=== PATIENT | male | born 1950 | race Caucasian/White ===

== ENCOUNTER → 2016-07-11 | Outpatient (CLI) | payer BC, OTHER ==
[~2016-07-11] MED LIST: /ACET5TA PO; /WARF25TA PO; ACET50TA PO; ALLE180T33 PO; ALLEGRA PO; ASCO25TA PO; ASPI325T PO; ASPI81TA85 PO; CELE-19 PO; CIPR500T89 PO; COLA100C PO; CRESTOR PO; FERR325T PO; FEXO60CA PO; FLAG500T PO; MELOPOW PO; MILKSUS PO; MULTCAP PO; MYLI40DR PO; NEUR600T PO; OXYC1TAB23 PO; PERCOCET PO; PROT1TAB2 PO; ROSU10TA PO; ROXI1TAB2 PO; TRAMADOL PO; TYLE325T5 PO; [UNRECOGNIZED DRUG - OTHER] PO; [UNRECOGNIZED DRUG - OTHER] PO
--- NOTE | 2016-07-11 12:00 | REP ---
Clinical: Arthritis . Comparison: 10/23/2013 . Technique: PA and lateral. Findings: The mediastinum and cardiac silhouette are normal. The lung villalobos are clear and without acute consolidation, effusion, or pneumothorax. The skeletal structures are intact and normal. Impression: 1. No acute cardiopulmonary process. Signed by Nino Martinez MD 07/11/2016 11:52 A
[2016-07-11 12:17] LABS: INR 0.98
[2016-07-11 12:30] LABS: ALBUMIN 3.9 GM/DL (3.2-5.2); ALBUMIN/GLOBULIN RATIO 1.18 (1.00-1.93); ALKALINE PHOSPHATASE 52 U/L (45-117); ALT/SGPT 33 U/L (12-78); ANION GAP 7 MEQ/L (8-16); AST/SGOT 19 U/L (15-37); BILIRUBIN,TOTAL 0.4 MG/DL (0.2-1.0); BLOOD UREA NITROGEN 18 MG/DL (7-18); CALCIUM LEVEL 9.3 MG/DL (8.8-10.2); CARBON DIOXIDE LEVEL 31 MEQ/L (21-32); CHLORIDE LEVEL 103 MEQ/L (98-107); CREATININE FOR GFR 0.96 MG/DL (0.70-1.30); GLOMERULAR FILTRATION RATE > 60.0 (>49); GLUCOSE, FASTING 105 MG/DL (80-110); POTASSIUM SERUM 4.4 MEQ/L (3.5-5.1); SODIUM LEVEL 141 MEQ/L (136-145); TOTAL PROTEIN 7.2 GM/DL (6.4-8.2)
[2016-07-11 12:46] LABS: MEAN CORPUSCULAR HEMOGLOBIN 27.3 pg (27.0-33.0); MEAN CORPUSCULAR HGB CONC 31.6 g/dl (32.0-36.5); MEAN CORPUSCULAR VOLUME 86.6 fl (80.0-96.0); RED CELL DISTRIBUTION WIDTH 12.8 % (11.5-14.5); WHITE BLOOD COUNT 7.2 K/mm3 (4.0-10.0)
--- NOTE | 2016-07-11 22:18 | ECGEPIP ---
Stationary ECG Study [facility] Test Date: 2016-07-11 Pat Name: CEDRIC WATKINS Department: Room: - Gender: [facility] Professor: HELEN : 1950 Requested By: Rubén Liao Order Number: [id number] Reading MD: Isatu Magallanes Measurements Intervals [place] Rate: 70 P: 63 VT: 184 QRS: 1 QRSD: 109 T: 48 QT: 385 QTc: 418 Interpretive Statements SINUS RHYTHM SIMILAR 10/25/13 Electronically Signed On 07-11-2016 22:18:23 EDT by Isatu Magallanes
== END ==
LOC: M ADMPAT 09:22
PROVIDERS: ATTEND Orthopaedic Surgery
DX: Z01.812 Encounter for preprocedural laboratory examination (principal); M17.11 Unilateral primary osteoarthritis, right knee

== ENCOUNTER 2016-07-22 05:41 | Inpatient (IN) | payer BC, OTHER ==
[2016-07-11 10:52] VITALS: BP 138/88
--- NOTE | 2016-07-18 13:20 | HPE ---
DATE OF ADMISSION: 07/22/2016 HISTORY OF PRESENT ILLNESS: This is a pleasant male with continuing symptomatic right knee osteoarthritis. He has consented for right total knee arthroplasty per Dr. Rubén Liao. Medical optimization with Dr. Han on 07/16/2016 which I am awaiting the documentation. X-rays are consistent with advanced osteoarthritis. ALLERGIES: None known to drugs. CURRENT MEDICATIONS: - Crestor 10 mg - Bibiana 60 mg - aspirin 81 mg - Tylenol 325 MEDICAL PROBLEM LIST INCLUDES: Right knee osteoarthritis. Hypercholesteremia. Seasonal allergies. PAST SURGICAL HISTORY: Positive for: Right hip replacement. Cholecystectomy. Hernia repair. PFO closure. FAMILY HISTORY: Positive for cancer, heart disease, hypertension. Denies smoking or ethanol intake. Denies illicit drugs. REVIEW OF SYSTEMS: Denies chest pain, shortness breath, dyspnea on exertion, fever, chills, malaise, upper respiratory or urinary tract symptoms. PHYSICAL EXAMINATION: Height 72 inches, weight 205, temperature 96.8, BP 140/90, pulse 64. This is a pleasant well-developed, well-nourished white male in no acute distress. Alert and times three. Mood and affect are appropriate. He is ambulating without overt antalgia assistance favoring. His bilateral lower extremities were inspected. Benign noninfectious looking. Right knee positive medial joint line tenderness with crepitance through flexion and extension. He is stable about the collateral ligaments. Patellar and quad tendons without palpable defect. PFJ congruent, static and dynamic. Compartment soft, nontender , palpation grossly intact to light touch. Negative calf tenderness. Homans' sign, palpable cords. Right hip range of motion is not limited or irritable. Bowel sounds times four, soft, nontender. Chest rises symmetrically. Lungs clear to auscultation. Neck supple. Negative JVD or bruits. His nasal and sinus culture was positive for moderate staphylococcus. He has begun the Bactroban Hibiclens wash protocol. UA was cloudy. Anion gap 7, hemoglobin 13.6. Mean corpuscular hemoglobin concentration 31.6 and a urine culture was negative. Chest x-ray was unremarkable for acute cardiopulmonary process. EKG sinus rhythm per Dr. Magallanes. IMPRESSION: 1. Symptomatic right knee osteoarthritis. 2. The patient consented for right total knee arthroplasty per Dr. Rubén Liao. 3. Medical optimization per Dr. Jepma performed on 07/16/2016. We are awaiting documentation. 4. On-call to OR. 2 grams IV Kefzol in OR. 5. Sequential compression devices (SCD) and thromboembolic deterrent stockings (TEDS) in OR. MTDD
[~2016-07-22] VITALS: Ht 182.9 cm; Wt 95.0 kg
[2016-07-22] VITALS (8 sets, daily range): BP systolic 122–149; BP diastolic 72–89
[~2016-07-22 05:41] MED LIST changes: -COLA100C PO; +COLA100C3 PO; +CRES10TA32 PO; -ROSU10TA PO
[2016-07-22] MEDS ORDERED: LR 1,000 ML IV SCH ×2 (05:45→09:45)
[2016-07-22] MEDS ORDERED: ceFAZolin 1GM INJ (J0690) As Ordered ONE (06:15)
[2016-07-22] MEDS ORDERED: fentaNYL 100 MCG/2 ML INJECTION (J3010) As Ordered ONE ×3 (06:47→07:48)
[2016-07-22] MEDS ORDERED: MIDAZOLAM INJ 2 MG/2 ML VIAL (J2250) As Ordered ONE ×2 (06:47→07:48)
[2016-07-22] MEDS ORDERED: TRANEXAMIC ACID 100 MG/ML 10ML VIAL As Ordered ONE (07:01)
[2016-07-22] MEDS ORDERED: EPINEPHrine INJ 1 MG/ML 1ML VIAL/AMP As Ordered ONE (07:01)
[2016-07-22] MEDS ORDERED: BUPIVACAINE HCL 0.5% 30 ML VIAL As Ordered ONE (07:01)
[2016-07-22] MEDS ORDERED: BUPIVACAINE HCL 0.25% 30 ML VIAL As Ordered ONE (07:37)
[2016-07-22] MEDS ORDERED: ONDANSETRON 4MG/2ML VIAL (J2405) As Ordered ONE (07:48)
[2016-07-22] MEDS ORDERED: PROPOFOL 200 MG/20 ML VIAL As Ordered ONE (07:48)
[2016-07-22] MEDS ORDERED: LIDOCAINE 2% INJ 100 MG/5 ML SDV (FOR ANES.) As Ordered ONE (07:48)
--- NOTE | 2016-07-22 07:50 | HPE ---
DATE OF ADMISSION: 07/22/2016 The patient is seen and examined and he wishes to go ahead with a right total knee arthroplasty. He understands the nature of this, the risks of bleeding, infection, damage to nerves, vessels, persistent pain, wear loosening, blood clots, medical problems, among others. CONSENT: Has had been obtained. Preop clearance was obtained.
[2016-07-22] MEDS ORDERED: MIDAZOLAM INJ 2 MG/2 ML VIAL (J2250) IV ONE (08:00)
[2016-07-22] MEDS ORDERED: fentaNYL 100 MCG/2 ML INJECTION (J3010) IV ONE (08:00)
[2016-07-22] MEDS ORDERED: ePHEDrine SULFATE 25 MG/5 ML(5MG/ML) SYRINGE As Ordered ONE (08:09)
[2016-07-22] MEDS ORDERED: SEVOFLURANE INHAL SOLN 250 ML BTL As Ordered ONE (08:11)
--- NOTE | 2016-07-22 09:25 | RO ---
DATE OF PROCEDURE: 07/22/2016 PREOPERATIVE DIAGNOSIS: Right knee osteoarthritis POSTOPERATIVE DIAGNOSIS: same PROCEDURE: Right total knee arthroplasty using a PFC rotating platform, posterior stabilized size 4 femur, size 4 tibia and a 15 polyethylene, 38 patellar button. SURGEON: Dr. Rubén Liao TUFTING MACHINE OPERATOR: Carlyle Bueno PA-C ANESTHESIA: Spinal. ESTIMATED BLOOD LOSS: Less than 50. COMPLICATIONS: None. INDICATION: 66-year-old gentleman who has had some gradually worsening right knee pain with severe arthritis. He wished to go a head with the knee replaced replacement having failed conservative management. He understood the nature of the procedure, the risks of bleeding, infection, damage to nerves, vessels, persistent pain, wear loosening, blood clots, medical problems, among others. Preop clearance was obtained. DESCRIPTION OF PROCEDURE: The patient taken to operating room and placed in the supine position after spinal anesthesia was induced. The right lower extremity was prepped and draped in usual sterile fashion. Time-out was performed. Tourniquet inflated to create a longitudinal incision over the anterior aspect of the knee. Sharp dissection was carried down through subcutaneous tissue. I then created a medial parapatellar arthrotomy in the usual fashion, everted the patella, flexed the knee up. He had severe arthritis. I then used a canal initiating reamer followed by the intramedullary guide on the femoral side set at 7 degrees of valgus and 10 mm because he was fairly valgus. I did do somewhat of a medial release but not as much as I would typically would with a varus knee. I removed osteophytes. Then the billing and accounting staff assistant pinned this block in the end of the femur. I used the saw to cut the distal femur. I then sized the femur to be a 4 and pinned this in place using the external rotators rotation guide, put the 4-in-1 cutting block on the end, pinned this in place and made the remaining cuts. The bone was quite hard. We then directed our attention to the tibia and put the posterior retractor in, the tibial alignment guide and the appropriate amount of posterior slope and valgus and pinned this in place 4 mm off the low side which was lateral and 10 mm off a high side. I actually brought the block up 2 mm because it looks like a little more aggressive cut than I wanted, so made this cut at 2 mm off the low side, which actually appeared to be an excellent amount of bone removed. I then used the paper cleaner to remove osteophytes from the posterior aspect of the femur and the soft tissue. The flexion/extension gaps appear to be excellent. I checked those with the 15 spacer block and was very pleased with this. I then prepared the femur. The tibia was protected and I placed the 4 box cutting guide, pinned this in place and we made the remaining three cuts. Removed the excess bone. We then placed the trial femur, which fit very nicely. I then prepared the tibia size 4 tibia seemed to fit nicely. I pinned this in place, drilled, broached and trial components were placed and we were very pleased with the flexion/extension range of motion, stability, alignment, etc. He was in a little bit of valgus and in excellent alignment. We chose these prosthesis. A freehand cut of the patella removing about 7 or 8 mm of bone, sized to be a 38, drill it, put the patella on put the knee through a range of motion. The patella tracked very nicely. There was no clicking or catching. I made sure that all the osteophytes were removed from on the proximal tibia and the distal femur. Trial components removed. The billing and accounting staff assistant prepared the bone cement in the modern technique. I irrigated and dried the bony surfaces carefully. I then cemented on the tibial tray, impacted in place, cemented on the femoral component impacted in place, and removed excess bone cement. I put the 4/15 polyethylene in and reduce the knee. Brought it out in extension, cemented on the patella, removed excess bone cement, irrigated copiously at this point and then made sure that all the cement was removed. The TXA solution was placed. I closed the deep layer with interrupted #1 Vicryl suture and then two single armed Stratafix sutures starting at the midpoint and we worked in opposite directions. Irrigated, closed the subcutaneous with #2-0 Vicryl, and the skin with nahum. Tourniquet was deflated. He was taken to recovery room in stable condition. There were no known complications. The plan will be routine postop. The billing and accounting staff assistant was instrumental in holding retractors, mixing cement, making the distal femoral cut, etc. CLARA
[2016-07-22] MEDS ORDERED: MORPHINE PCA 1MG/ML 100ML CADD As Ordered ONE (09:27)
[2016-07-22] MEDS ORDERED: PATIENT IS CURRENTLY ON AN ON-Q PAIN BUSTER PAIN RELIEF SYSTEM XX SCH (09:45)
[2016-07-22] MEDS ORDERED: FLEET ENEMA PR PRN (09:45)
[2016-07-22] MEDS ORDERED: HYDROmorphone HCL 1 MG/ML SYRINGE (J1170) IV PRN (09:45)
[2016-07-22] MEDS: LR 1,000 ML IV SCH ×2 (09:45→23:05)
[2016-07-22] MEDS ORDERED: EPIDURAL/PCA KEYS XX PRN (09:45)
[2016-07-22] MEDS ORDERED: PERCOCET 5MG/325MG TAB PO PRN (09:45)
[2016-07-22] MEDS ORDERED: NALOXONE INJ 0.4 MG/1 ML VIAL (J2310) IV PRN (09:45)
[2016-07-22] MEDS ORDERED: fentaNYL 100 MCG/2 ML INJECTION (J3010) IV PRN (09:45)
[2016-07-22] MEDS ORDERED: ONDANSETRON 4MG/2ML VIAL (J2405) IV PRN ×3 (09:45)
[2016-07-22] MEDS ORDERED: NALBUPHINE HCL 10 MG/ML AMP (J2300) IV PRN (09:45)
[2016-07-22] MEDS ORDERED: MORPHINE PCA 1MG/ML 100ML CADD IV PRN (09:45)
[2016-07-22] MEDS ORDERED: ACETAMINOPHEN TAB 650MG DOSE (2X325MG) PO PRN (09:45)
[2016-07-22] MEDS ORDERED: diphenhydrAMINE INJ 50MG/ML VIAL (J1200) IV PRN (09:45)
[2016-07-22] MEDS ORDERED: dexameTHASONE 10 MG/1 ML VIAL PRES.FREE (J1100) ONE (13:39)
[2016-07-22] MEDS ORDERED: ROPIvacaine 0.5% 30 ML INJECTION (J2795) ONE (13:39)
--- NOTE | 2016-07-22 14:26 | CR ---
DATE OF CONSULTATION: 07/22/[address] LOYD REASON FOR CONSULTATION: Medical management. HISTORY OF PRESENT ILLNESS: This is a 66-year-old male patient with underlying medical history of osteoarthritis, history of CVA with no residual deficit, history of patent foramen ovale status post repair, seasonal allergies, and dyslipidemia. The patient was admitted on the orthopedic service for right total knee replacement surgery. Status post surgery, medicine consulted for medical management. The patient is seen in the postanesthesia care unit (PACU). He denies any fevers, chills, chest pain, pressure or discomfort. Does not use CPAP at home. Denies history of smoking or alcohol drinking or illicit drug use. Primary care provider Dr. Han. ALLERGIES: No known drug allergies. PAST MEDICAL HISTORY: 1. Dyslipidemia. 2. Seasonal allergies. 3. History of CVA with no residual deficit. 4. History of patent foramen ovale, status post repair. PAST SURGICAL HISTORY: 1. Right hip replacement. 2. Cholecystectomy. 3. Appendectomy. 4. Hernia repair. 5. Patent foramen ovale closure. FAMILY HISTORY: Father with coronary artery disease. Brother with cerebrovascular disease. SOCIAL HISTORY: Patient denies smoking or alcohol use or illicit drug use. REVIEW OF SYSTEMS: Eleven point review of systems negative except for those mentioned in history of present illness (HPI). HOME MEDICATIONS: - acetaminophen 650 mg by mouth daily - aspirin 81 mg by mouth daily - Bibiana 180 mg by mouth daily - Crestor 10 mg by mouth at bedtime PHYSICAL EXAMINATION: VITAL SIGNS: Temperature 97.4. Pulse 69. Respirations 16. Blood pressure 132/84. Pulse oximetry 100% on 2 liters nasal cannula. GENERAL: Patient alert and oriented times three in no acute distress. Comfortable. HEENT: Normocephalic, atraumatic. PULMONARY: Bilateral clear to auscultation. CARDIAC: Regular rate and rhythm. Normal S1, S2. ABDOMEN: Soft. Nontender. Nondistended. Hypoactive bowel sounds. EXTREMITIES: Right lower extremity dressing clean, dry and intact. 1+ edema right lower extremity . Left lower extremity with dorsalis pedis (DP) and posterior tibial (PT) pulses intact. No edema. ASSESSMENT AND PLAN: This is a 66-year-old male patient with underlying medical history of coronary artery disease, cerebrovascular disease with no residual deficit, osteoarthritis, seasonal allergies admitted under orthopedic service for right total knee replacement surgery. PROBLEMS: 1. Osteoarthritis status post right total knee replacement surgery. Perioperative management, pain regimen, activity status, deep vein thrombosis prophylaxis as per orthopedics. Patient on Coumadin for deep vein thrombosis prophylaxis. Physical therapy as per orthopedics. Pain regimen as per orthopedics. Bowel regimen added. 2. Dyslipidemia. Continue Crestor. 3. Seasonal allergies. Continue current medication. 4. History of CVA. Given patient on Coumadin, will hold aspirin until the surgical team is comfortable with restarting. Continue Crestor for now. Close monitoring. Deep vein thrombosis prophylaxis. Patient on Coumadin as per primary team. DISPOSITION: Postoperative day zero.
[2016-07-22] MEDS: FEXOFENADINE 60 MG TAB PO SCH (15:35)
[2016-07-22] MEDS ORDERED: WARFARIN SOD 5 MG TAB PO SCH (17:00)
[2016-07-22] MEDS: SENOKOT S TAB PO SCH (20:02)
[2016-07-22] MEDS: ROSUVASTATIN 10 MG TAB (CRESTOR) PO SCH (20:02)
[2016-07-23 03:30] VITALS: BP 125/71
[2016-07-23 06:42] LABS: MEAN CORPUSCULAR HEMOGLOBIN 27.7 pg (27.0-33.0); MEAN CORPUSCULAR VOLUME 86.6 fl (80.0-96.0); RED CELL DISTRIBUTION WIDTH 12.9 % (11.5-14.5); WHITE BLOOD COUNT 8.4 K/mm3 (4.0-10.0)
[2016-07-23 06:44] LABS: INR 1.05
[2016-07-23] MEDS ORDERED: ONDANSETRON 4 MG TAB (S0181) PO PRN (06:45)
[2016-07-23] MEDS ORDERED: PERCOCET 5MG/325MG TAB PO PRN (06:45)
[2016-07-23 07:15] LABS: ANION GAP 5 MEQ/L (8-16); BLOOD UREA NITROGEN 18 MG/DL (7-18); CALCIUM LEVEL 8.1 MG/DL (8.8-10.2); CARBON DIOXIDE LEVEL 31 MEQ/L (21-32); CHLORIDE LEVEL 103 MEQ/L (98-107); GLOMERULAR FILTRATION RATE > 60.0 (>49); GLUCOSE, FASTING 137 MG/DL (80-110); MAGNESIUM LEVEL 1.9 MG/DL (1.8-2.4); POTASSIUM SERUM 3.9 MEQ/L (3.5-5.1); SODIUM LEVEL 139 MEQ/L (136-145)
[2016-07-23] MEDS: FEXOFENADINE 60 MG TAB PO SCH (07:58)
[2016-07-23] MEDS: MOM 30ML SUSPENSION UDC PO SCH (07:59)
[2016-07-23] MEDS: MIRALAX *UNIT DOSE* 17GM PACKET PO SCH (07:59)
[2016-07-23] MEDS: SENOKOT S TAB PO SCH ×3 (07:59→21:06)
[2016-07-23] MEDS: PERCOCET 5MG/325MG TAB PO PRN ×3 (08:00→21:07)
[2016-07-23 10:00] VITALS: BP 150/93
[2016-07-23 12:30] VITALS: BP 128/72
[2016-07-23 14:00] VITALS: BP 147/84
--- NOTE | 2016-07-23 16:37 | REP ---
RIGHT KNEE, TWO VIEWS: Two views of the right knee are performed. There is a total knee arthroplasty with osseous structures intact. Structures are well aligned. Metallic skin nahum are seen anteriorly. Signed by Eb Calvert MD 07/23/2016 04:36 P
[2016-07-23] MEDS ORDERED: WARFARIN SOD 5 MG TAB PO SCH (17:00)
[2016-07-23] MEDS: ROSUVASTATIN 10 MG TAB (CRESTOR) PO SCH (21:06)
[2016-07-23] MEDS ORDERED: LIDOCAINE 1% MDV 20ML VIAL As Ordered ONE (21:34)
[2016-07-23 22:00] VITALS: BP 135/82
[2016-07-24] MEDS: PERCOCET 5MG/325MG TAB PO PRN (05:44)
[2016-07-24 06:00] VITALS: BP 132/90
[2016-07-24 07:34] LABS: INR 1.26; MEAN CORPUSCULAR HEMOGLOBIN 27.7 pg (27.0-33.0); MEAN CORPUSCULAR HGB CONC 32.3 g/dl (32.0-36.5); MEAN CORPUSCULAR VOLUME 85.9 fl (80.0-96.0); RED CELL DISTRIBUTION WIDTH 12.8 % (11.5-14.5); WHITE BLOOD COUNT 6.9 K/mm3 (4.0-10.0)
[2016-07-24 07:36] LABS: ANION GAP 4 MEQ/L (8-16); BLOOD UREA NITROGEN 14 MG/DL (7-18); CALCIUM LEVEL 8.4 MG/DL (8.8-10.2); CARBON DIOXIDE LEVEL 32 MEQ/L (21-32); CHLORIDE LEVEL 102 MEQ/L (98-107); CREATININE FOR GFR 0.89 MG/DL (0.70-1.30); GLOMERULAR FILTRATION RATE > 60.0 (>49); GLUCOSE, FASTING 132 MG/DL (80-110); MAGNESIUM LEVEL 2.1 MG/DL (1.8-2.4); SODIUM LEVEL 138 MEQ/L (136-145)
[2016-07-24] MEDS ORDERED: PERC5TAB6 PO (08:38)
[2016-07-24] MEDS ORDERED: COUM2.5T11 PO (08:38)
[2016-07-24] MEDS: MOM 30ML SUSPENSION UDC PO SCH (08:51)
[2016-07-24] MEDS: MIRALAX *UNIT DOSE* 17GM PACKET PO SCH (08:51)
[2016-07-24] MEDS: FEXOFENADINE 60 MG TAB PO SCH (08:51)
[2016-07-24] MEDS: SENOKOT S TAB PO SCH (08:51)
[2016-07-24] MEDS ORDERED: WARFARIN SOD 7.5 MG TAB PO ONE (17:00)
== END 2016-07-24 12:00 | disposition home health service (06) | DRG 302 ==
LOC: M OR 05:41 → M MS5PR 10:50
PROVIDERS: ADMIT Orthopaedic Surgery; ATTEND Orthopaedic Surgery
PROC: 0SRC0JZ Replacement of Right Knee Joint with Synthetic Substitute, Open Approach (ICD-10-PCS; principal; 2016-07-22 07:30)
DX: M17.11 Unilateral primary osteoarthritis, right knee (principal); E78.00 Pure hypercholesterolemia, unspecified; J30.2 Other seasonal allergic rhinitis; E78.5 Hyperlipidemia, unspecified; Z79.82 Long term (current) use of aspirin; Z79.899 Other long term (current) drug therapy; Z86.73 Personal history of transient ischemic attack (TIA), and cerebral infarction without residual deficits

== ENCOUNTER → 2016-07-26 | Outpatient (REF) | payer OTHER ==
[~2016-07-26] MED LIST changes: +COUM2.5T11 PO; +PERC5TAB6 PO
[2016-07-26 13:00] LABS: INR 1.36
== END ==
LOC: M SHH 11:50
PROVIDERS: ATTEND Nurse Practitioner Family
DX: Z79.01 Long term (current) use of anticoagulants (principal)

== ENCOUNTER → 2016-07-29 | Outpatient (REF) | payer OTHER ==
[2016-07-29 14:35] LABS: INR 1.38
== END ==
LOC: M SHH 14:00
PROVIDERS: ATTEND Nurse Practitioner Family
DX: Z79.01 Long term (current) use of anticoagulants (principal)

== ENCOUNTER → 2016-08-01 | Outpatient (REF) | payer OTHER ==
[2016-08-01 15:00] LABS: INR 1.32
== END ==
LOC: M LAB REF 14:18
PROVIDERS: ATTEND Nurse Practitioner Family
DX: Z79.01 Long term (current) use of anticoagulants (principal)

== ENCOUNTER → 2016-08-05 | Outpatient (REF) | payer OTHER ==
[2016-08-05 12:01] LABS: INR 1.62
== END ==
LOC: M LABDRAWC 11:21
PROVIDERS: ATTEND Orthopaedic Surgery
DX: Z79.01 Long term (current) use of anticoagulants (principal)

== ENCOUNTER → 2016-08-08 | Outpatient (REF) | payer OTHER ==
[2016-08-08 11:35] LABS: INR 1.74
== END ==
LOC: M LABDRAWC 11:19
PROVIDERS: ATTEND Orthopaedic Surgery
DX: Z01.818 Encounter for other preprocedural examination (principal); M17.11 Unilateral primary osteoarthritis, right knee; Z79.01 Long term (current) use of anticoagulants

== ENCOUNTER → 2016-08-12 | Outpatient (REF) | payer OTHER ==
[2016-08-12 12:44] LABS: INR 1.9
== END ==
LOC: M LABDRAWC 12:06
PROVIDERS: ATTEND Orthopaedic Surgery
DX: Z79.01 Long term (current) use of anticoagulants (principal)

== ENCOUNTER → 2016-08-15 | Outpatient (REF) | payer OTHER ==
[2016-08-15 12:19] LABS: INR 1.62
== END ==
LOC: M LABDRAWC 11:13
PROVIDERS: ATTEND Orthopaedic Surgery
DX: Z79.01 Long term (current) use of anticoagulants (principal)

== ENCOUNTER → 2016-08-19 | Outpatient (REF) | payer OTHER ==
[2016-08-19 11:59] LABS: INR 1.71
== END ==
LOC: M LABDRWCV 11:10
PROVIDERS: ATTEND Orthopaedic Surgery
DX: Z79.01 Long term (current) use of anticoagulants (principal)

== ENCOUNTER → 2017-01-23 | Outpatient (REF) | payer MEDICARE, OTHER ==
[~2017-01-23] MED LIST changes: -CELE-19 PO; +CELE1CAP4 PO; +CIPR-249 PO; -COLA100C3 PO; +COLA100C5 PO; -COUM2.5T11 PO; +COUM2.5T17 PO; +FERR1TAB8 PO; -FERR325T PO; +PERC5TAB12 PO; -PERC5TAB6 PO
[2017-01-23 13:55] LABS: ALBUMIN 3.7 GM/DL (3.2-5.2); ALBUMIN/GLOBULIN RATIO 1.12 (1.00-1.93); ALKALINE PHOSPHATASE 50 U/L (45-117); ALT/SGPT 29 U/L (12-78); ANION GAP 9 MEQ/L (8-16); AST/SGOT 13 U/L (15-37); BILIRUBIN,TOTAL 0.4 MG/DL (0.2-1.0); BLOOD UREA NITROGEN 16 MG/DL (7-18); CALCIUM LEVEL 8.8 MG/DL (8.8-10.2); CARBON DIOXIDE LEVEL 28 MEQ/L (21-32); CHLORIDE LEVEL 103 MEQ/L (98-107); CHOLESTEROL LEVEL 150 MG/DL (<200); CREATININE FOR GFR 0.91 MG/DL (0.70-1.30); GLOMERULAR FILTRATION RATE > 60.0 (>49); GLUCOSE, FASTING 114 MG/DL (80-110); POTASSIUM SERUM 4.3 MEQ/L (3.5-5.1); SODIUM LEVEL 140 MEQ/L (136-145); TRIGLYCERIDES LEVEL 169 MG/DL (<150)
== END ==
LOC: M SFHCCLAY 07:14
PROVIDERS: ATTEND Family Medicine
DX: E78.2 Mixed hyperlipidemia (principal); Z12.5 Encounter for screening for malignant neoplasm of prostate; I10 Essential (primary) hypertension
CPT/HCPCS: 80053; 80061; 84443; G0103

== ENCOUNTER → 2017-09-01 | Outpatient (REF) | payer MEDICARE, OTHER ==
[2017-09-01 12:47] LABS: ALBUMIN 3.7 GM/DL (3.2-5.2); ALBUMIN/GLOBULIN RATIO 1.06 (1.00-1.93); ALKALINE PHOSPHATASE 48 U/L (45-117); ALT/SGPT 38 U/L (12-78); ANION GAP 3 MEQ/L (8-16); AST/SGOT 21 U/L (7-37); BILIRUBIN,TOTAL 0.5 MG/DL (0.2-1.0); BLOOD UREA NITROGEN 17 MG/DL (7-18); CALCIUM LEVEL 8.9 MG/DL (8.8-10.2); CARBON DIOXIDE LEVEL 30 MEQ/L (21-32); CHLORIDE LEVEL 107 MEQ/L (98-107); CHOLESTEROL LEVEL 143 MG/DL (<200); CHOLESTEROL RISK RATIO 2.698 (<5); CREATININE FOR GFR 0.98 MG/DL (0.70-1.30); GLOMERULAR FILTRATION RATE > 60.0 (>49); GLUCOSE, FASTING 119 MG/DL (70-100); HDL CHOLESTEROL 53 MG/DL (>40); LDL CHOLESTEROL 54.4 MG/DL (<100); NON-HDL-C 90 MG/DL; POTASSIUM SERUM 4.3 MEQ/L (3.5-5.1); SODIUM LEVEL 140 MEQ/L (136-145); TOTAL PROTEIN 7.2 GM/DL (6.4-8.2); TRIGLYCERIDES LEVEL 178 MG/DL (<150)
== END ==
LOC: M SFHCCLAY 07:04
DX: E78.2 Mixed hyperlipidemia (principal); I10 Essential (primary) hypertension
CPT/HCPCS: 84443

== ENCOUNTER → 2017-11-25 | Outpatient (CLI) | payer MEDICARE, BC, OTHER | LOC: M EKG 07:57 | DX: Z01.818 Encounter for other preprocedural examination (principal); E78.00 Pure hypercholesterolemia, unspecified; K21.9 Gastro-esophageal reflux disease without esophagitis; G43.909 Migraine, unspecified, not intractable, without status migrainosus | CPT/HCPCS: 93005 ==

== ENCOUNTER 2017-11-27 09:28 | Day surgery (SDC) | payer MEDICARE, BC, OTHER ==
[2017-11-27] MEDS: LR 1,000 ML IV (10:01)
[2017-11-27] MEDS ORDERED: fentaNYL 250 MCG/5 ML INJECTION (J3010) As Ordered (14:05)
[2017-11-27] MEDS ORDERED: ROCURONIUM BROMIDE 50 MG/5 ML VIAL As Ordered (14:05)
[2017-11-27] MEDS ORDERED: LIDOCAINE 2% INJ 100 MG/5 ML SDV (FOR ANES.) As Ordered (14:05)
[2017-11-27] MEDS ORDERED: dexameTHASONE 4 MG/ML 1ML VIAL (J1100) As Ordered (14:05)
[2017-11-27] MEDS ORDERED: PROPOFOL 200 MG/20 ML VIAL As Ordered (14:05)
[2017-11-27] MEDS ORDERED: MIDAZOLAM INJ 2 MG/2 ML VIAL (J2250) As Ordered (14:05)
[2017-11-27] MEDS ORDERED: ONDANSETRON 4MG/2ML VIAL (J2405) As Ordered (14:05)
[2017-11-27] MEDS ORDERED: ePHEDrine SULFATE 25 MG/5 ML(5MG/ML) SYRINGE As Ordered (14:07)
[2017-11-27] MEDS ORDERED: SUGAMMADEX SODIUM 500 MG/5 ML VIAL (BRIDION) As Ordered (14:14)
[2017-11-27] MEDS: CETACAINE SPRAY 5GM As Ordered (14:42)
[2017-11-27] MEDS ORDERED: ACETAMINOPH W/CODEINE #3 TAB UD PO (15:00)
[2017-11-27] MEDS ORDERED: PERCOCET 5MG/325MG TAB PO (15:00)
[2017-11-27] MEDS ORDERED: ONDANSETRON 4MG/2ML VIAL (J2405) IV (15:00)
[2017-11-27] MEDS ORDERED: fentaNYL 100 MCG/2 ML INJECTION (J3010) IV (15:00)
[2017-11-27] MEDS ORDERED: LR 1,000 ML IV ×2 (15:00)
== END 2017-11-27 16:10 | disposition home or self-care (01) ==
LOC: M SDC 09:28
DX: J38.1 Polyp of vocal cord and larynx (principal); K21.9 Gastro-esophageal reflux disease without esophagitis; E78.00 Pure hypercholesterolemia, unspecified; E78.4 Other hyperlipidemia; Z86.73 Personal history of transient ischemic attack (TIA), and cerebral infarction without residual deficits; Z79.899 Other long term (current) drug therapy
CPT/HCPCS: 31572

== ENCOUNTER → 2018-03-16 | Outpatient (REF) | payer MEDICARE, OTHER ==
[2018-03-16 12:18] LABS: ALBUMIN 3.7 GM/DL (3.2-5.2); ALBUMIN/GLOBULIN RATIO 1.16 (1.00-1.93); ALKALINE PHOSPHATASE 46 U/L (45-117); ALT/SGPT 39 U/L (12-78); ANION GAP 7 MEQ/L (8-16); AST/SGOT 22 U/L (7-37); BILIRUBIN,TOTAL 0.6 MG/DL (0.2-1.0); BLOOD UREA NITROGEN 17 MG/DL (7-18); CALCIUM LEVEL 8.7 MG/DL (8.8-10.2); CARBON DIOXIDE LEVEL 29 MEQ/L (21-32); CHLORIDE LEVEL 105 MEQ/L (98-107); CREATININE FOR GFR 1.04 MG/DL (0.70-1.30); GLOMERULAR FILTRATION RATE > 60.0 (>49); GLUCOSE, FASTING 111 MG/DL (70-100); POTASSIUM SERUM 4.5 MEQ/L (3.5-5.1); SODIUM LEVEL 141 MEQ/L (136-145); TOTAL PROTEIN 6.9 GM/DL (6.4-8.2)
[2018-03-16 13:56] LABS: ESTIMATED AVERAGE GLUCOSE 137 MG/DL (60-110); HEMOGLOBIN A1c 6.4 %
== END ==
LOC: M SFHCCLAY 07:27
DX: I10 Essential (primary) hypertension (principal); R73.01 Impaired fasting glucose
CPT/HCPCS: 80053

== ENCOUNTER → 2018-03-20 | Outpatient (REF) | payer MEDICARE, OTHER ==
[2018-03-20 12:31] LABS: ALT/SGPT 35 U/L (12-78); AST/SGOT 19 U/L (7-37); CHOLESTEROL LEVEL 156 MG/DL (<200); CHOLESTEROL RISK RATIO 2.736 (<5); CPK CREATINE PHOSPHOKINASE 116 U/L (39-308); HDL CHOLESTEROL 57 MG/DL (>40); LDL CHOLESTEROL 71 MG/DL (<100); NON-HDL-C 99 MG/DL; TRIGLYCERIDES LEVEL 140 MG/DL (<150)
== END ==
LOC: M LABDRAWC 11:23
DX: Q21.1 Atrial septal defect (principal); I63.40 Cerebral infarction due to embolism of unspecified cerebral artery
CPT/HCPCS: 84460

== ENCOUNTER → 2018-09-10 | Outpatient (REF) | payer MEDICARE, OTHER ==
[~2018-09-10] MED LIST changes: -/ACET5TA PO; -/WARF25TA PO; +ACET1TAB18 PO; -ACET50TA PO; -ASCO25TA PO; +COUM1TAB18 PO; +CRES10TA PO; -CRES10TA32 PO; +MAPA500T17 PO; +MILK120011 PO; -MILKSUS PO; -PERCOCET PO; +VITA1TAB23 PO
[2018-09-10 11:37] LABS: ALBUMIN 3.5 GM/DL (3.2-5.2); ALT/SGPT 36 U/L (12-78); BILIRUBIN,TOTAL 0.5 MG/DL (0.2-1.0); BLOOD UREA NITROGEN 18 MG/DL (7-18); CALCIUM LEVEL 8.5 MG/DL (8.8-10.2); CARBON DIOXIDE LEVEL 29 MEQ/L (21-32); CHLORIDE LEVEL 105 MEQ/L (98-107); CHOLESTEROL LEVEL 148 MG/DL (<200); CHOLESTEROL RISK RATIO 2.508 (<5); CREATININE FOR GFR 0.97 MG/DL (0.70-1.30); GLOMERULAR FILTRATION RATE > 60.0 (>49); GLUCOSE, FASTING 118 MG/DL (70-100); HDL CHOLESTEROL 59 MG/DL (>40); LDL CHOLESTEROL 65 MG/DL (<100); NON-HDL-C 89 MG/DL; POTASSIUM SERUM 4.3 MEQ/L (3.5-5.1); SODIUM LEVEL 141 MEQ/L (136-145); TOTAL PROTEIN 7.2 GM/DL (6.4-8.2); TRIGLYCERIDES LEVEL 120 MG/DL (<150)
[2018-09-10 11:50] LABS: HEMOGLOBIN A1c 6.5 %
== END ==
LOC: M SFHCCLAY 07:04
PROVIDERS: ATTEND Family Medicine
DX: I10 Essential (primary) hypertension (principal); R73.01 Impaired fasting glucose; E78.2 Mixed hyperlipidemia

== ENCOUNTER 2019-05-20 09:49 | Emergency (ER) | payer MEDICARE, OTHER ==
[~2019-05-20] VITALS: Ht 182.9 cm; Wt 97.3 kg
--- NOTE | 2019-05-20 11:12 | REP ---
Right lower extremity Duplex Doppler venous ultrasound: Real time compression and duplex Doppler interrogation of the right lower extremity deep venous system is performed. The right common femoral, superficial femoral and popliteal veins are fully compressible with transducer pressure and demonstrate normal spontaneous and phasic flow, without evidence of deep venous thrombosis. Impression: No evidence of deep venous thrombosis of the right lower extremity femoral popliteal venous system. Electronically Signed by Eb Calvert MD 05/20/2019 11:03 A
[2019-05-20] MEDS ORDERED: NS 500 ML IV ONE (11:15)
[2019-05-20] MEDS ORDERED: ceFAZolin SOD 1 GM in D5W MINI-BAG PLUS 50 ML IV ONE (11:15)
--- NOTE | 2019-05-20 11:33 | REP ---
ULTRASOUND RIGHT ANKLE SOFT TISSUES: Real-time sonographic evaluation of right ankle soft tissues performed at the site of a palpable lump. Complex fluid collection is seen at that location measuring 2.7 x 1.1 x 2.4 cm. There are multiple internal septations. There is adjacent ill-defined soft tissue edema. IMPRESSION: Complex fluid collection at the site of the palpable lump in the right anteromedial ankle region. Electronically Signed by Eb Calvert MD 05/21/2019 11:22 A
[2019-05-20 11:41] LABS: BASO % 0.2 % (0.0-1.0); EOS # 0.1 10^3/uL (0.0-0.5); EOS % 1.4 % (0.0-3.0); HEMATOCRIT 44.7 % (42.0-52.0); HEMOGLOBIN 13.4 g/dl (13.5-17.5); LYMPH # 1.7 10^3/uL (1.5-5.0); LYMPH % 21.5 % (24.0-44.0); MEAN CORPUSCULAR HEMOGLOBIN 26.6 pg (27.0-33.0); MEAN CORPUSCULAR VOLUME 88.9 fl (80.0-96.0); MONO # 0.8 10^3/uL (0.0-0.8); NEUTROPHILS # 5.4 10^3/uL (1.5-8.5); NEUTROPHILS % 66.5 % (36.0-66.0); PLATELET COUNT, AUTOMATED 258 10^3/uL (150-450); RED BLOOD COUNT 5.03 10^6/uL (4.30-6.10); WHITE BLOOD COUNT 8.1 10^3/uL (4.0-10.0)
[2019-05-20 11:59] LABS: BLOOD UREA NITROGEN 18 MG/DL (7-18); CALCIUM LEVEL 9.4 MG/DL (8.8-10.2); CARBON DIOXIDE LEVEL 31 MEQ/L (21-32); CHLORIDE LEVEL 104 MEQ/L (98-107); CREATININE FOR GFR 0.93 MG/DL (0.70-1.30); GLOMERULAR FILTRATION RATE > 60.0 (>49); GLUCOSE, FASTING 97 MG/DL (70-100); POTASSIUM SERUM 4.3 MEQ/L (3.5-5.1); SODIUM LEVEL 139 MEQ/L (136-145)
[2019-05-20 13:43] VITALS: BP 141/94
[2019-05-20] MEDS ORDERED: LIDOCAINE 1% MDV 20ML VIAL SC ONE (14:00)
[2019-05-20] MEDS ORDERED: KEFL500C17 PO (14:10)
--- NOTE | 2019-05-24 16:05 | ED PDOC ---
Post-Departure Follow-Up dr miramontes faxed fomal report of extremity us for fu Angela Caballero MD May 24, 2019 16:05
== END 2019-05-20 14:38 | disposition home or self-care (01) ==
LOC: M ED 09:49
DX: L03.115 Cellulitis of right lower limb (principal); K21.9 Gastro-esophageal reflux disease without esophagitis; K52.9 Noninfective gastroenteritis and colitis, unspecified; M54.9 Dorsalgia, unspecified; Z86.73 Personal history of transient ischemic attack (TIA), and cerebral infarction without residual deficits; Z79.899 Other long term (current) drug therapy; Z79.82 Long term (current) use of aspirin
CPT/HCPCS: 10060; 76882; 80048; 83605; 85025; 87040; 87070; 87077; 87186; 87205; 93971; 96365; 99284; J0690

== ENCOUNTER → 2020-03-08 | Outpatient (REF) | payer MEDICARE, OTHER ==
[~2020-03-08] MED LIST changes: -ASPI81TA85 PO; +ASPI81TA86 PO; +KEFL500C17 PO; -VITA1TAB23 PO; +VITA250T20 PO
[2020-03-08 13:06] LABS: HEMOGLOBIN A1c 6.5 %
[2020-03-08 13:22] LABS: ALBUMIN 3.7 GM/DL (3.2-5.2); ALT/SGPT 38 U/L (12-78); BILIRUBIN,TOTAL 0.7 MG/DL (0.2-1.0); BLOOD UREA NITROGEN 20 MG/DL (7-18); CALCIUM LEVEL 9.2 MG/DL (8.8-10.2); CARBON DIOXIDE LEVEL 28 MEQ/L (21-32); CHLORIDE LEVEL 104 MEQ/L (98-107); CHOLESTEROL LEVEL 160 MG/DL (<200); CHOLESTEROL RISK RATIO 2.758 (<5); CREATININE FOR GFR 1.04 MG/DL (0.70-1.30); GLOMERULAR FILTRATION RATE > 60.0 (>49); GLUCOSE, FASTING 124 MG/DL (70-100); HDL CHOLESTEROL 58 MG/DL (>40); LDL CHOLESTEROL 76 MG/DL (<100); NON-HDL-C 102 MG/DL; POTASSIUM SERUM 4.6 MEQ/L (3.5-5.1); SODIUM LEVEL 139 MEQ/L (136-145); TRIGLYCERIDES LEVEL 130 MG/DL (<150)
== END ==
LOC: M SFHCCLAY 06:57
PROVIDERS: ATTEND Family Medicine
DX: E78.2 Mixed hyperlipidemia (principal); R73.01 Impaired fasting glucose

== ENCOUNTER → 2021-03-20 | Outpatient (CLI) | payer MEDICARE, OTHER | LOC: M CLY 10:38 | PROVIDERS: ATTEND Family Medicine | DX: R05.9 Cough, unspecified (principal); E78.2 Mixed hyperlipidemia; R73.01 Impaired fasting glucose; R03.0 Elevated blood-pressure reading, without diagnosis of hypertension | CPT/HCPCS: 71046; 80053; 80061; 83036; 85025; 90682; G0008; G0463 ==

== ENCOUNTER → 2021-03-20 | Outpatient (REF) | payer MEDICARE, OTHER ==
[2021-03-20 16:21] LABS: HEMATOCRIT 45.4 % (42.0-52.0); HEMOGLOBIN 13.9 g/dl (13.5-17.5); MEAN CORPUSCULAR HEMOGLOBIN 26.8 pg (27.0-33.0); MEAN CORPUSCULAR HGB CONC 30.6 g/dl (32.0-36.5); MEAN CORPUSCULAR VOLUME 87.5 fl (80.0-96.0); PLATELET COUNT, AUTOMATED 259 10^3/uL (150-450); RED BLOOD COUNT 5.19 10^6/uL (4.30-6.10); WHITE BLOOD COUNT 12.6 10^3/uL (4.0-10.0)
[2021-03-20 16:58] LABS: ALBUMIN 3.6 GM/DL (3.2-5.2); ALT/SGPT 44 U/L (12-78); BILIRUBIN,TOTAL 0.4 MG/DL (0.2-1.0); BLOOD UREA NITROGEN 19 MG/DL (7-18); CALCIUM LEVEL 9.2 MG/DL (8.8-10.2); CARBON DIOXIDE LEVEL 32 MEQ/L (21-32); CHLORIDE LEVEL 104 MEQ/L (98-107); CHOLESTEROL LEVEL 143 MG/DL (<200); CHOLESTEROL RISK RATIO 2.979 (<5); CREATININE FOR GFR 0.89 MG/DL (0.70-1.30); GLOMERULAR FILTRATION RATE > 60.0 (>49); GLUCOSE, FASTING 93 MG/DL (70-100); HDL CHOLESTEROL 48 MG/DL (>40); LDL CHOLESTEROL 36 MG/DL (<100); NON-HDL-C 95 MG/DL; SODIUM LEVEL 139 MEQ/L (136-145); TOTAL PROTEIN 7.1 GM/DL (6.4-8.2); TRIGLYCERIDES LEVEL 295 MG/DL (<150)
[2021-03-20 17:15] LABS: EOSINOPHILS 3 % (0-3); LYMPHOCYTES 56 % (16-44); MONOCYTES 7 % (0-5); NEUTROPHILS 34 % (28-66); PLATELET ESTIMATE NORMAL (NORMAL)
[2021-03-20 17:21] LABS: HEMOGLOBIN A1c 6.4 %
== END ==
LOC: M SFHCCLAY 10:29
PROVIDERS: ATTEND Family Medicine
DX: E78.2 Mixed hyperlipidemia (principal); R73.01 Impaired fasting glucose; R03.0 Elevated blood-pressure reading, without diagnosis of hypertension; R05.9 Cough, unspecified

== ENCOUNTER → 2021-05-11 | Outpatient (CLI) | payer MEDICARE, BC, OTHER ==
[2021-05-11 10:57] LABS: BLOOD UREA NITROGEN 20 MG/DL (7-18); CALCIUM LEVEL 9.2 MG/DL (8.8-10.2); CARBON DIOXIDE LEVEL 30 MEQ/L (21-32); CHLORIDE LEVEL 105 MEQ/L (98-107); CREATININE FOR GFR 0.98 MG/DL (0.70-1.30); GLOMERULAR FILTRATION RATE > 60.0 (>49); GLUCOSE, FASTING 107 MG/DL (70-100); POTASSIUM SERUM 4.5 MEQ/L (3.5-5.1); SODIUM LEVEL 140 MEQ/L (136-145)
== END ==
LOC: M LAB 09:54
PROVIDERS: ATTEND Otolaryngology Plastic Surgery within the Head & Neck
DX: J39.2 Other diseases of pharynx (principal)

== ENCOUNTER → 2021-05-14 | Outpatient (CLI) | payer MEDICARE, BC, OTHER ==
[~2021-05-14] MED LIST changes: +ISOVUE-370 76% 100ML VIAL As Ordered ONE
== END ==
LOC: M RAD 07:51
PROVIDERS: ATTEND Otolaryngology Plastic Surgery within the Head & Neck
DX: J39.2 Other diseases of pharynx (principal)
CPT/HCPCS: 70491; Q9967

== ENCOUNTER → 2022-02-26 | Outpatient (REF) | payer MEDICARE, OTHER ==
[~2022-02-26] MED LIST changes: -ISOVUE-370 76% 100ML VIAL As Ordered ONE
[2022-02-26 12:06] LABS: HEMATOCRIT 44.7 % (42.0-52.0); HEMOGLOBIN 13.9 g/dl (13.5-17.5); MEAN CORPUSCULAR HGB CONC 31.1 g/dl (32.0-36.5); MEAN CORPUSCULAR VOLUME 86.8 fl (80.0-96.0); PLATELET COUNT, AUTOMATED 232 10^3/uL (150-450); RED BLOOD COUNT 5.15 10^6/uL (4.30-6.10); WHITE BLOOD COUNT 20.6 10^3/uL (4.0-10.0)
[2022-02-26 14:16] LABS: ALBUMIN 3.7 GM/DL (3.2-5.2); ALT/SGPT 32 U/L (12-78); BILIRUBIN,TOTAL 0.5 MG/DL (0.2-1.0); BLOOD UREA NITROGEN 18 MG/DL (7-18); CALCIUM LEVEL 9.2 MG/DL (8.8-10.2); CARBON DIOXIDE LEVEL 29 MEQ/L (21-32); CHLORIDE LEVEL 105 MEQ/L (98-107); CHOLESTEROL LEVEL 145 MG/DL (<200); CHOLESTEROL RISK RATIO 2.636 (<5); CREATININE FOR GFR 1.07 MG/DL (0.70-1.30); GLOMERULAR FILTRATION RATE > 60.0 (>42); GLUCOSE, FASTING 131 MG/DL (70-100); HDL CHOLESTEROL 55 MG/DL (>40); LDL CHOLESTEROL 63 MG/DL (<100); NON-HDL-C 90 MG/DL; POTASSIUM SERUM 4.9 MEQ/L (3.5-5.1); SODIUM LEVEL 138 MEQ/L (136-145); TOTAL PROTEIN 6.8 GM/DL (6.4-8.2); TRIGLYCERIDES LEVEL 133 MG/DL (<150)
[2022-02-26 14:36] LABS: ATYPICAL LYMPH 47 % (0-5); EOSINOPHILS 7 % (0-3); LYMPHOCYTES 14 % (16-44); METAMYELOCYTES 1 % (0-0); MONOCYTES 9 % (0-5); NEUTROPHILS 22 % (28-66)
[2022-02-26 14:38] LABS: PLATELET ESTIMATE NORMAL (NORMAL); SMUDGE CELLS 3+
[2022-02-26 19:02] LABS: HEMOGLOBIN A1c 6.4 %
== END ==
LOC: M SFHCCLAY 07:35
PROVIDERS: ATTEND Family Medicine
DX: E78.2 Mixed hyperlipidemia (principal); R73.01 Impaired fasting glucose; R03.0 Elevated blood-pressure reading, without diagnosis of hypertension

== ENCOUNTER → 2022-06-25 | Outpatient (REF) | payer MEDICARE, OTHER ==
[~2022-06-25] MED LIST changes: +ALBU8.5H; +ASPI81CH48 PO; +[UNRECOGNIZED DRUG - OTHER]
[2022-06-25 11:51] LABS: BASO # 0.1 10^3/uL (0.0-0.2); BASO % 0.5 % (0.0-1.0); EOS % 8.2 % (0.0-3.0); HEMATOCRIT 43.2 % (42.0-52.0); HEMOGLOBIN 13.4 g/dl (13.5-17.5); LYMPH # 16.9 10^3/uL (1.5-5.0); LYMPH % 69.5 % (24.0-44.0); MEAN CORPUSCULAR HEMOGLOBIN 26.9 pg (27.0-33.0); MEAN CORPUSCULAR VOLUME 86.6 fl (80.0-96.0); MONO % 8.8 % (2.0-8.0); NEUTROPHILS # 3.1 10^3/uL (1.5-8.5); NEUTROPHILS % 12.8 % (36.0-66.0); PLATELET COUNT, AUTOMATED 214 10^3/uL (150-450); RED BLOOD COUNT 4.99 10^6/uL (4.30-6.10); WHITE BLOOD COUNT 24.3 10^3/uL (4.0-10.0)
[2022-06-25 11:52] LABS: MONO # 2.1 10^3/uL (0.0-0.8)
[2022-06-25 11:57] LABS: LDH LACTATE DEHYDROGENASE 183 U/L (120-246)
[2022-06-25 12:02] LABS: ALBUMIN 3.5 G/DL (3.2-5.2); ALKALINE PHOSPHATASE 52 U/L (46-116); ALT/SGPT 24 U/L (7.0-40); AST/SGOT 20 U/L (<34); BILIRUBIN,TOTAL 0.6 MG/DL (0.3-1.2); BLOOD UREA NITROGEN 18 MG/DL (9-23); CALCIUM LEVEL 8.8 MG/DL (8.3-10.6); CARBON DIOXIDE LEVEL 29 MMOL/L (20-31); CHLORIDE LEVEL 105 MMOL/L (98-107); CREATININE FOR GFR 0.97 MG/DL (0.70-1.30); GLOMERULAR FILTRATION RATE > 60.0 (>42); GLUCOSE, FASTING 126 MG/DL (74-106); POTASSIUM SERUM 4.6 MMOL/L (3.5-5.1); SODIUM LEVEL 140 MMOL/L (136-145); TOTAL PROTEIN 6.2 G/DL (5.7-8.2)
== END ==
LOC: M LABDRAWC 11:14
PROVIDERS: ATTEND Internal Medicine Hematology & Oncology
DX: C92.10 Chronic myeloid leukemia, BCR/ABL-positive, not having achieved remission (principal)

== ENCOUNTER → 2022-07-01 | Outpatient (CLI) | payer MEDICARE, BC, OTHER ==
[~2022-07-01] MED LIST changes: +GASTROGRAFIN SOLUTION 30ML As Ordered ONE; +ISOVUE-370 76% 100ML VIAL As Ordered ONE
== END ==
LOC: M RAD 10:48
PROVIDERS: ATTEND Internal Medicine
DX: C92.10 Chronic myeloid leukemia, BCR/ABL-positive, not having achieved remission (principal)
CPT/HCPCS: 70491; 71260; 74177; Q9963; Q9967

== ENCOUNTER → 2022-12-09 | Outpatient (REF) | payer MEDICARE, BC, OTHER ==
[~2022-12-09] MED LIST changes: +ACET-910 PO; -GASTROGRAFIN SOLUTION 30ML As Ordered ONE; -ISOVUE-370 76% 100ML VIAL As Ordered ONE
[2022-12-09 18:06] LABS: URIC ACID 4.5 MG/DL (3.7-9.2)
[2022-12-09 18:08] LABS: ALBUMIN 3.2 G/DL (3.2-5.2); ALKALINE PHOSPHATASE 57 U/L (46-116); ALT/SGPT 25 U/L (7.0-40); AST/SGOT 10 U/L (<34); BILIRUBIN,TOTAL 0.3 MG/DL (0.3-1.2); BLOOD UREA NITROGEN 20 MG/DL (9-23); CALCIUM LEVEL 8.5 MG/DL (8.3-10.6); CARBON DIOXIDE LEVEL 30 MMOL/L (20-31); CHLORIDE LEVEL 102 MMOL/L (98-107); CREATININE FOR GFR 0.85 MG/DL (0.70-1.30); GLOMERULAR FILTRATION RATE > 60.0 (>42); GLUCOSE, FASTING 119 MG/DL (74-106); POTASSIUM SERUM 4.1 MMOL/L (3.5-5.1); RHEUMATOID FACTOR QUANT < 3.5 IU/ML (<14); SODIUM LEVEL 138 MMOL/L (136-145); TOTAL PROTEIN 6.3 G/DL (5.7-8.2)
[2022-12-09 18:11] LABS: ERYTHROCYTE SEDIMENTATION RATE 32 mm/hr (0-20)
[2022-12-09 19:06] LABS: HEMATOCRIT 40.8 % (42.0-52.0); HEMOGLOBIN 12.3 g/dl (13.5-17.5); MEAN CORPUSCULAR HEMOGLOBIN 26.5 pg (27.0-33.0); MEAN CORPUSCULAR HGB CONC 30.1 g/dl (32.0-36.5); MEAN CORPUSCULAR VOLUME 87.7 fl (80.0-96.0); PLATELET COUNT, AUTOMATED 195 10^3/uL (150-450); RED BLOOD COUNT 4.65 10^6/uL (4.30-6.10)
[2022-12-09 19:17] LABS: ATYPICAL LYMPH 3 % (0-5); LYMPHOCYTES 86 % (16-44); NEUTROPHILS 11 % (28-66)
[2022-12-09 19:18] LABS: PLATELET ESTIMATE NORMAL (NORMAL)
[2022-12-09 20:00] LABS: WHITE BLOOD COUNT 30.3 10^3/uL (4.0-10.0)
== END ==
LOC: M SFHCCLAY 14:54
PROVIDERS: ATTEND Physician Assistant
DX: M79.89 Other specified soft tissue disorders (principal)

== ENCOUNTER → 2022-12-20 | Outpatient (CLI) | payer MEDICARE, BC, OTHER | LOC: M CLY 11:53 | PROVIDERS: ATTEND Family Medicine | DX: M79.671 Pain in right foot (principal) ==

== ENCOUNTER → 2022-12-25 | Outpatient (CLI) | payer MEDICARE, BC, OTHER | LOC: M CLY 08:04 | PROVIDERS: ATTEND Family Medicine | DX: M79.671 Pain in right foot (principal) ==

== ENCOUNTER → 2023-01-07 | Outpatient (CLI) | payer MEDICARE, BC, OTHER ==
[2023-01-07 14:52] LABS: HEMATOCRIT 42.6 % (42.0-52.0); HEMOGLOBIN 13.3 g/dl (13.5-17.5); MEAN CORPUSCULAR HGB CONC 31.2 g/dl (32.0-36.5); MEAN CORPUSCULAR VOLUME 86.4 fl (80.0-96.0); PLATELET COUNT, AUTOMATED 186 10^3/uL (150-450); RED BLOOD COUNT 4.93 10^6/uL (4.30-6.10)
[2023-01-07 15:10] LABS: C REACTIVE PROTEIN QUANTITATIV < 0.40 MG/DL (<1.0)
[2023-01-07 15:12] LABS: ALBUMIN 3.9 G/DL (3.2-5.2); ALKALINE PHOSPHATASE 57 U/L (46-116); ALT/SGPT 29 U/L (7.0-40); AST/SGOT 19 U/L (<34); BILIRUBIN,TOTAL 0.5 MG/DL (0.3-1.2); BLOOD UREA NITROGEN 16 MG/DL (9-23); CALCIUM LEVEL 9.2 MG/DL (8.3-10.6); CARBON DIOXIDE LEVEL 30 MMOL/L (20-31); CHLORIDE LEVEL 105 MMOL/L (98-107); CREATININE FOR GFR 0.84 MG/DL (0.70-1.30); GLOMERULAR FILTRATION RATE > 60.0 (>42); GLUCOSE, FASTING 120 MG/DL (74-106); POTASSIUM SERUM 4.4 MMOL/L (3.5-5.1); SODIUM LEVEL 141 MMOL/L (136-145); TOTAL PROTEIN 6.7 G/DL (5.7-8.2)
[2023-01-07 16:05] LABS: WHITE BLOOD COUNT 32.6 10^3/uL (4.0-10.0)
[2023-01-07 16:19] LABS: ATYPICAL LYMPH 72 % (0-5); EOSINOPHILS 1 % (0-3); LYMPHOCYTES 12 % (16-44); MONOCYTES 3 % (0-5); NEUTROPHILS 12 % (28-66); PLATELET ESTIMATE NORMAL (NORMAL); SMUDGE CELLS 2+
[2023-01-07 16:45] LABS: RHEUMATOID FACTOR QUANT < 3.5 IU/ML (<14)
[2023-01-07 17:12] LABS: ERYTHROCYTE SEDIMENTATION RATE 13 mm/hr (0-20)
== END ==
LOC: M RAD 13:38
PROVIDERS: ATTEND Physician Assistant
DX: M25.474 Effusion, right foot (principal)

== ENCOUNTER → 2023-01-10 | Outpatient (CLI) | payer MEDICARE, BC, OTHER ==
[~2023-01-10] MED LIST changes: +PROHANCE 279.3MG/ML 15ML VIAL As Ordered ONE; +PROHANCE 279.3MG/ML 5ML VIAL As Ordered ONE
== END ==
LOC: M RAD 07:12
PROVIDERS: ATTEND Physician Assistant
DX: S93.311A Subluxation of tarsal joint of right foot, initial encounter (principal); M25.474 Effusion, right foot; Y93.9 Activity, unspecified; Y92.9 Unspecified place or not applicable
CPT/HCPCS: 73723; A9576

== ENCOUNTER 2023-01-19 09:50 | Emergency (ER) | payer MEDICARE, BC, OTHER ==
[~2023-01-19] VITALS: Ht 180.3 cm; Wt 96.5 kg
[~2023-01-19 09:50] MED LIST changes: -PROHANCE 279.3MG/ML 15ML VIAL As Ordered ONE; -PROHANCE 279.3MG/ML 5ML VIAL As Ordered ONE
[2023-01-19 10:58] LABS: HEMATOCRIT 40.3 % (42.0-52.0); HEMOGLOBIN 12.6 g/dl (13.5-17.5); MEAN CORPUSCULAR HEMOGLOBIN 26.8 pg (27.0-33.0); MEAN CORPUSCULAR HGB CONC 31.3 g/dl (32.0-36.5); MEAN CORPUSCULAR VOLUME 85.7 fl (80.0-96.0); PLATELET COUNT, AUTOMATED 216 10^3/uL (150-450)
[2023-01-19 11:02] LABS: WHITE BLOOD COUNT 30.6 10^3/uL (4.0-10.0)
[2023-01-19] MEDS ORDERED: cefTRIAXone SOD 1 GM in D5W MINI-BAG PLUS 50 ML IV ONE (11:05)
[2023-01-19 11:11] LABS: ALBUMIN 3.3 G/DL (3.2-5.2); BILIRUBIN,DIRECT 0.2 MG/DL (<0.4); BILIRUBIN,TOTAL 0.6 MG/DL (0.3-1.2); TOTAL PROTEIN 6.1 G/DL (5.7-8.2)
[2023-01-19] MEDS ORDERED: ISOVUE-370 76% 100ML VIAL As Ordered ONE (11:12)
[2023-01-19 11:21] LABS: ATYPICAL LYMPH 8 % (0-5); EOSINOPHILS 1 % (0-3); LYMPHOCYTES 59 % (16-44); MONOCYTES 3 % (0-5); NEUTROPHILS 29 % (28-66)
[2023-01-19 11:28] LABS: OVALOCYTES 1+; PLATELET ESTIMATE NORMAL (NORMAL)
[2023-01-19 11:29] LABS: POIKILOCYTOSIS 1+; SMUDGE CELLS 2+
[2023-01-19 13:47] LABS: POTASSIUM SERUM 4.3 MMOL/L (3.5-5.1)
[2023-01-19] MEDS ORDERED: FLOM0.4C39 PO (13:50)
[2023-01-19] MEDS ORDERED: CIPR500T39 PO (13:50)
[2023-01-19 14:08] VITALS: BP 157/102; TEMP 98.7; O2SAT 97
== END 2023-01-19 14:12 | disposition home or self-care (01) ==
LOC: M ED 09:50
DX: N30.00 Acute cystitis without hematuria (principal); E78.5 Hyperlipidemia, unspecified; J44.9 Chronic obstructive pulmonary disease, unspecified; K21.9 Gastro-esophageal reflux disease without esophagitis; K57.90 Diverticulosis of intestine, part unspecified, without perforation or abscess without bleeding; I89.0 Lymphedema, not elsewhere classified; J30.89 Other allergic rhinitis; Z86.73 Personal history of transient ischemic attack (TIA), and cerebral infarction without residual deficits; Z79.82 Long term (current) use of aspirin; Z79.899 Other long term (current) drug therapy
CPT/HCPCS: 74177; 80047; 80076; 80503; 81000; 81015; 83690; 84132; 85025; 87088; 87186; 96365; 99284; J0696; Q9967

== ENCOUNTER → 2023-02-17 | Outpatient (CLI) | payer MEDICARE, BC, OTHER ==
[~2023-02-17] MED LIST changes: +CIPR500T39 PO; +FLOM0.4C39 PO
== END ==
LOC: M RAD 11:52
PROVIDERS: ATTEND Physician Assistant
DX: N32.89 Other specified disorders of bladder (principal)

== ENCOUNTER → 2023-02-28 | Outpatient (REF) | payer MEDICARE, OTHER ==
[2023-02-28 12:57] LABS: HEMOGLOBIN A1c 5.7 % (4.0-6.0)
[2023-02-28 13:02] LABS: ALBUMIN 3.6 G/DL (3.2-5.2); ALKALINE PHOSPHATASE 54 U/L (46-116); ALT/SGPT 23 U/L (7.0-40); AST/SGOT 13 U/L (<34); BILIRUBIN,TOTAL 0.5 MG/DL (0.3-1.2); BLOOD UREA NITROGEN 17 MG/DL (9-23); CALCIUM LEVEL 9.1 MG/DL (8.3-10.6); CARBON DIOXIDE LEVEL 29 MMOL/L (20-31); CHLORIDE LEVEL 102 MMOL/L (98-107); CHOLESTEROL LEVEL 143 MG/DL (<200); CHOLESTEROL RISK RATIO 2.93 (<5); CREATININE FOR GFR 0.91 MG/DL (0.70-1.30); GLOMERULAR FILTRATION RATE > 60.0 (>42); GLUCOSE, FASTING 133 MG/DL (74-106); HDL CHOLESTEROL 48.8 MG/DL (>40); NON-HDL-C 94.2 MG/DL; POTASSIUM SERUM 4.7 MMOL/L (3.5-5.1); SODIUM LEVEL 139 MMOL/L (136-145); TOTAL PROTEIN 6.3 G/DL (5.7-8.2); TRIGLYCERIDES LEVEL 121 MG/DL (<150)
== END ==
LOC: M SFHCCLAY 06:57
PROVIDERS: ATTEND Family Medicine
DX: E78.2 Mixed hyperlipidemia (principal); R73.01 Impaired fasting glucose

== ENCOUNTER → 2023-03-26 | Outpatient (REF) | payer MEDICARE, OTHER ==
[2023-03-26 18:08] LABS: APPEARANCE, URINE CLOUDY (CLEAR); BACTERIA, URINE AUTO 2+ (NEGATIVE); BILIRUBIN, URINE AUTO NEGATIVE (NEGATIVE); BLOOD, URINE BLOOD 3+ (NEGATIVE); COLOR, URINE AMBER (YELLOW); GLUCOSE, URINE (UA) AUTO NEGATIVE (NEGATIVE); KETONE, URINE AUTO NEGATIVE (NEGATIVE); LEUKOCYTE ESTERASE, URINE AUTO 2+ (NEGATIVE); NITRITE, URINE AUTO NEGATIVE (NEGATIVE); PROTEIN, URINE AUTO 2+ mg/dL (NEGATIVE); RBC, URINE AUTO TNTC /HPF (0-3); SPECIFIC GRAVITY URINE AUTO 1.011 (1.002-1.035); SQUAMOUS EPITHELIAL CELL UR AU 0 /HPF (0-6); UROBILINOGEN, URINE AUTO 0.2 mg/dL (0.0-2.0); WBC, URINE AUTO TNTC /HPF (0-3)
== END ==
LOC: M SMT 17:18
PROVIDERS: ATTEND Physician Assistant
DX: R33.9 Retention of urine, unspecified (principal)

== ENCOUNTER → 2023-04-09 | Outpatient (CLI) | payer MEDICARE, BC, OTHER | LOC: M RAD 09:49 | PROVIDERS: ATTEND Podiatrist | DX: M79.673 Pain in unspecified foot (principal) | CPT/HCPCS: 78315; A9503 ==

== ENCOUNTER → 2023-06-27 | Outpatient (REF) | payer MEDICARE, OTHER, BC ==
[2023-06-27 12:07] LABS: BLOOD UREA NITROGEN 19 MG/DL (9-23); CALCIUM LEVEL 8.7 MG/DL (8.3-10.6); CARBON DIOXIDE LEVEL 29 MMOL/L (20-31); CHLORIDE LEVEL 105 MMOL/L (98-107); CREATININE FOR GFR 0.96 MG/DL (0.70-1.30); GLOMERULAR FILTRATION RATE > 60.0 (>42); GLUCOSE, FASTING 135 MG/DL (74-106); POTASSIUM SERUM 4.1 MMOL/L (3.5-5.1); SODIUM LEVEL 137 MMOL/L (136-145)
== END ==
LOC: M LABDRAWC 11:19
PROVIDERS: ATTEND Otolaryngology Plastic Surgery within the Head & Neck
DX: J39.2 Other diseases of pharynx (principal)

== ENCOUNTER → 2023-07-02 | Outpatient (CLI) | payer MEDICARE, BC ==
[~2023-07-02] MED LIST changes: +ISOVUE-370 76% 100ML VIAL As Ordered ONE
== END ==
LOC: M RAD 07:14
PROVIDERS: ATTEND Otolaryngology Plastic Surgery within the Head & Neck
DX: R91.8 Other nonspecific abnormal finding of lung field (principal)
CPT/HCPCS: 70491; 71250; Q9967

== ENCOUNTER → 2023-09-08 | Outpatient (REF) | payer MEDICARE, BC ==
[~2023-09-08] MED LIST changes: -ISOVUE-370 76% 100ML VIAL As Ordered ONE
[2023-09-08 12:26] LABS: ALBUMIN 3.6 G/DL (3.2-5.2); ALKALINE PHOSPHATASE 56 U/L (46-116); ALT/SGPT 24 U/L (7.0-40); AST/SGOT 15 U/L (<34); BILIRUBIN,TOTAL 0.5 MG/DL (0.3-1.2); BLOOD UREA NITROGEN 22 MG/DL (9-23); CALCIUM LEVEL 8.9 MG/DL (8.3-10.6); CARBON DIOXIDE LEVEL 29 MMOL/L (20-31); CHLORIDE LEVEL 107 MMOL/L (98-107); CREATININE FOR GFR 0.97 MG/DL (0.70-1.30); GLOMERULAR FILTRATION RATE > 60.0 (>42); GLUCOSE, FASTING 129 MG/DL (74-106); POTASSIUM SERUM 4.6 MMOL/L (3.5-5.1); SODIUM LEVEL 141 MMOL/L (136-145); TOTAL PROTEIN 6.4 G/DL (5.7-8.2)
== END ==
LOC: M SFHCCLAY 08:20
PROVIDERS: ATTEND Family Medicine
DX: R73.01 Impaired fasting glucose (principal)

== ENCOUNTER → 2023-10-22 | Outpatient (CLI) | payer MEDICARE, BC | LOC: M RAD 10:59 | PROVIDERS: ATTEND Physician Assistant | DX: R33.9 Retention of urine, unspecified (principal); N32.89 Other specified disorders of bladder; N32.3 Diverticulum of bladder ==

== ENCOUNTER → 2023-11-20 | Outpatient (CLI) | payer MEDICARE, BC ==
[~2023-11-20] MED LIST changes: -ALBU8.5H; +ALBU8.5H INH; +FURO40TA2 PO; +GLUC1CAP10 PO; +ROSU10TA61 PO; +THERTAB52 PO
== END ==
LOC: M RAD 09:00
PROVIDERS: ATTEND Internal Medicine Critical Care Medicine
DX: R91.8 Other nonspecific abnormal finding of lung field (principal)

== ENCOUNTER 2023-11-26 11:01 | Day surgery (SDC) | payer MEDICARE, BC ==
[~2023-11-26] VITALS: Ht 180.3 cm; Wt 95.3 kg
[2023-11-26] MEDS: NS 1,000 ML IV ONE (11:54)
[2023-11-26] MEDS ORDERED: propofoL 200 MG/20 ML VIAL As Ordered ONE (13:29)
[2023-11-26] MEDS ORDERED: LIDOCAINE 2% 100MG/5ML SDV (FOR ANES.) As Ordered ONE (13:29)
[2023-11-26] MEDS ORDERED: fentaNYL 100 MCG/2 ML INJECTION As Ordered ONE (13:29)
[2023-11-26 13:46] VITALS: TEMP 98.7
[2023-11-26 14:01] VITALS: BP 127/83; O2SAT 98
== END 2023-11-26 14:12 | disposition home or self-care (01) ==
LOC: M OPP 11:01
PROVIDERS: ATTEND Internal Medicine Gastroenterology
DX: K20.90 Esophagitis, unspecified without bleeding (principal); K22.89 Other specified disease of esophagus; R93.3 Abnormal findings on diagnostic imaging of other parts of digestive tract; J44.9 Chronic obstructive pulmonary disease, unspecified; C95.11 Chronic leukemia of unspecified cell type, in remission; Z86.73 Personal history of transient ischemic attack (TIA), and cerebral infarction without residual deficits; Z79.02 Long term (current) use of antithrombotics/antiplatelets; Z79.1 Long term (current) use of non-steroidal anti-inflammatories (NSAID); Z79.51 Long term (current) use of inhaled steroids; Z79.82 Long term (current) use of aspirin; Z79.899 Other long term (current) drug therapy
CPT/HCPCS: 43235; 88305; J3010

== ENCOUNTER → 2024-03-11 | Outpatient (REF) | payer MEDICARE, BC ==
[2024-03-11 12:26] LABS: ALBUMIN 3.7 G/DL (3.2-5.2); ALKALINE PHOSPHATASE 62 U/L (40-129); ALT/SGPT 27 U/L (7.0-40); AST/SGOT 13 U/L (<34); BILIRUBIN,TOTAL 0.6 MG/DL (0.3-1.2); BLOOD UREA NITROGEN 18 MG/DL (9-23); CALCIUM LEVEL 9.6 MG/DL (8.3-10.6); CARBON DIOXIDE LEVEL 30 MMOL/L (20-31); CHLORIDE LEVEL 102 MMOL/L (98-107); CHOLESTEROL LEVEL 158 MG/DL (<200); CHOLESTEROL RISK RATIO 3.16 (<5); CREATININE FOR GFR 1.02 MG/DL (0.70-1.30); GLOMERULAR FILTRATION RATE > 60.0 (>42); GLUCOSE, FASTING 132 MG/DL (74-106); HDL CHOLESTEROL 49.9 MG/DL (>40); LDL CHOLESTEROL 86.5 MG/DL (<100); NON-HDL-C 108.1 MG/DL; POTASSIUM SERUM 4.8 MMOL/L (3.5-5.1); SODIUM LEVEL 137 MMOL/L (136-145); TRIGLYCERIDES LEVEL 108 MG/DL (<150)
[2024-03-11 12:40] LABS: HEMOGLOBIN A1c 5.3 % (4.0-6.0)
== END ==
LOC: M SFHCCLAY 07:01
PROVIDERS: ATTEND Family Medicine
DX: R73.01 Impaired fasting glucose (principal); E78.2 Mixed hyperlipidemia

== ENCOUNTER → 2024-07-01 | Outpatient (REF) | payer MEDICARE, OTHER ==
[2024-07-01 15:42] LABS: ALBUMIN 3.5 G/DL (3.2-5.2); ALKALINE PHOSPHATASE 62 U/L (40-129); ALT/SGPT 22 U/L (7.0-40); AST/SGOT 16 U/L (<34); BILIRUBIN,TOTAL 0.6 MG/DL (0.3-1.2); BLOOD UREA NITROGEN 19 MG/DL (9-23); CALCIUM LEVEL 8.9 MG/DL (8.3-10.6); CARBON DIOXIDE LEVEL 29 MMOL/L (20-31); CHLORIDE LEVEL 104 MMOL/L (98-107); CREATININE FOR GFR 1.02 MG/DL (0.70-1.30); GLOMERULAR FILTRATION RATE > 60.0 (>42); GLUCOSE, FASTING 117 MG/DL (74-106); POTASSIUM SERUM 4.1 MMOL/L (3.5-5.1); SODIUM LEVEL 142 MMOL/L (136-145); TOTAL PROTEIN 6.5 G/DL (5.7-8.2)
== END ==
LOC: M LABDRAWC 13:16
PROVIDERS: ATTEND Otolaryngology Plastic Surgery within the Head & Neck
DX: J39.2 Other diseases of pharynx (principal)

== ENCOUNTER → 2024-07-05 | Outpatient (CLI) | payer MEDICARE, BC ==
[~2024-07-05] MED LIST changes: +ISOVUE-370 76% 100ML VIAL As Ordered ONE
== END ==
LOC: M RAD 12:48
PROVIDERS: ATTEND Otolaryngology Plastic Surgery within the Head & Neck
DX: J39.2 Other diseases of pharynx (principal); K22.9 Disease of esophagus, unspecified
CPT/HCPCS: 70491; 71260; Q9967

== ENCOUNTER → 2024-09-08 | Outpatient (REF) | payer MEDICARE, BC ==
[~2024-09-08] MED LIST changes: -FLOM0.4C39 PO; -ISOVUE-370 76% 100ML VIAL As Ordered ONE; +TAMS-18 PO
[2024-09-08 13:36] LABS: ALBUMIN 3.8 G/DL (3.2-5.2); BILIRUBIN,TOTAL 0.5 MG/DL (0.3-1.2); CALCIUM LEVEL 9.5 MG/DL (8.3-10.6); CREATININE FOR GFR 0.97 MG/DL (0.70-1.30); GLOMERULAR FILTRATION RATE 82.9 (>42); POTASSIUM SERUM 4.3 MMOL/L (3.5-5.1); TOTAL PROTEIN 6.8 G/DL (5.7-8.2)
== END ==
LOC: M SFHCCLAY 06:59
PROVIDERS: ATTEND Family Medicine
DX: R73.01 Impaired fasting glucose (principal)

== ENCOUNTER → 2024-10-21 | Outpatient (REF) | payer MEDICARE, BC ==
[2024-10-21 14:08] LABS: CREATININE FOR GFR 0.90 MG/DL (0.70-1.30); GLOMERULAR FILTRATION RATE > 90.0 (>42)
== END ==
LOC: M LABDRAWC 13:19
PROVIDERS: ATTEND Physician Assistant
DX: I70.90 Unspecified atherosclerosis (principal)

== ENCOUNTER → 2024-10-26 | Outpatient (CLI) | payer MEDICARE, BC ==
[~2024-10-26] MED LIST changes: +ISOVUE-370 76% 100 ML VIAL As Ordered ONE
== END ==
LOC: M RAD 09:44
PROVIDERS: ATTEND Surgery Vascular Surgery
DX: I70.90 Unspecified atherosclerosis (principal)
CPT/HCPCS: 75635; Q9967

== ENCOUNTER → 2024-11-24 | Outpatient (REF) | payer MEDICARE, BC ==
[~2024-11-24] MED LIST changes: -ISOVUE-370 76% 100 ML VIAL As Ordered ONE
[2024-11-24 13:10] LABS: ALT/SGPT 22.0 U/L (7.0-40); AST/SGOT 20.0 U/L (<34); CALCIUM LEVEL 9.0 MG/DL (8.3-10.6); CARBON DIOXIDE LEVEL 29.0 MMOL/L (20-31); CHLORIDE LEVEL 105.0 MMOL/L (98-107); CREATININE FOR GFR 0.96 MG/DL (0.70-1.30); GLOMERULAR FILTRATION RATE 84.0 (>42); POTASSIUM SERUM 4.3 MMOL/L (3.5-5.1); SODIUM LEVEL 143.0 MMOL/L (136-145)
[2024-11-24 13:19] LABS: BASO # 0.1 10^3/uL (0.0-0.2); BASO % 0.1 % (0.0-1.0); EOS # 0.5 10^3/uL (0.0-0.5); EOS % 0.6 % (0.0-3.0); LYMPH # 80.0 10^3/uL (1.5-5.0); LYMPH % 89.2 % (24.0-44.0); MONO % 4.7 % (2.0-8.0); NEUTROPHILS # 4.8 10^3/uL (1.5-8.5); NEUTROPHILS % 5.2 % (36.0-66.0); PLATELET COUNT, AUTOMATED 307 10^3/uL (150-450)
[2024-11-24 13:29] LABS: MONO # 4.2 10^3/uL (0.0-0.8)
== END ==
LOC: M LABDRAWC 12:34 → M LAB REF 12:34
PROVIDERS: ATTEND Internal Medicine Hematology & Oncology
DX: C95.10 Chronic leukemia of unspecified cell type not having achieved remission (principal)

== ENCOUNTER → 2025-02-07 | Outpatient (REF) | payer MEDICARE, BC ==
[2025-02-07 18:20] LABS: VITAMIN B12 LEVEL 550 PG/ML (211-911)
[2025-02-07 18:22] LABS: IRON (FE) 72 UG/DL (65-175)
[2025-02-07 18:23] LABS: ALT/SGPT 22 U/L (7.0-40); AST/SGOT 20 U/L (<34); CALCIUM LEVEL 9.0 MG/DL (8.3-10.6); CARBON DIOXIDE LEVEL 28 MMOL/L (20-31); CHLORIDE LEVEL 104 MMOL/L (98-107); CHOLESTEROL LEVEL 158 MG/DL (<200); CHOLESTEROL RISK RATIO 3.14 (<5); CREATININE FOR GFR 0.97 MG/DL (0.70-1.30); GLOMERULAR FILTRATION RATE 82.4 (>42); LDL CHOLESTEROL 77.2 MG/DL (<100); MAGNESIUM LEVEL 2.0 MG/DL (1.8-2.4); NON-HDL-C 107.8 MG/DL; POTASSIUM SERUM 4.5 MMOL/L (3.5-5.1); SODIUM LEVEL 143 MMOL/L (136-145); TRIGLYCERIDES LEVEL 153 MG/DL (<150)
[2025-02-07 18:34] LABS: BASO # 0.1 10^3/uL (0.0-0.2); BASO % 0.1 % (0.0-1.0); EOS # 0.5 10^3/uL (0.0-0.5); EOS % 0.5 % (0.0-3.0); LYMPH # 95.0 10^3/uL (1.5-5.0); LYMPH % 88.7 % (24.0-44.0); MONO % 6.3 % (2.0-8.0); NEUTROPHILS # 4.5 10^3/uL (1.5-8.5); NEUTROPHILS % 4.2 % (36.0-66.0); PLATELET COUNT, AUTOMATED 122 10^3/uL (150-450)
[2025-02-07 18:36] LABS: MONO # 6.8 10^3/uL (0.0-0.8)
[2025-02-07 18:37] LABS: ESTIMATED AVERAGE GLUCOSE 103.0 MG/DL (60-110)
== END ==
LOC: M SFHCCLAY 09:37
PROVIDERS: ATTEND Family Medicine
DX: C91.10 Chronic lymphocytic leukemia of B-cell type not having achieved remission (principal); Z13.21 Encounter for screening for nutritional disorder; R73.01 Impaired fasting glucose; R03.0 Elevated blood-pressure reading, without diagnosis of hypertension; E78.2 Mixed hyperlipidemia

== ENCOUNTER → 2025-02-07 | Outpatient (REF) | payer MEDICARE, BC ==
[2025-02-07 18:04] LABS: BASO # 0.1 10^3/uL (0.0-0.2); BASO % 0.1 % (0.0-1.0); EOS # 0.5 10^3/uL (0.0-0.5); EOS % 0.5 % (0.0-3.0); LYMPH # 93.6 10^3/uL (1.5-5.0); LYMPH % 88.5 % (24.0-44.0); MONO % 6.5 % (2.0-8.0); NEUTROPHILS # 4.4 10^3/uL (1.5-8.5); NEUTROPHILS % 4.2 % (36.0-66.0); PLATELET COUNT, AUTOMATED 121 10^3/uL (150-450)
[2025-02-07 18:25] LABS: ALT/SGPT 19.0 U/L (7.0-40); AST/SGOT 21.0 U/L (<34); CALCIUM LEVEL 9.2 MG/DL (8.3-10.6); CARBON DIOXIDE LEVEL 29.0 MMOL/L (20-31); CHLORIDE LEVEL 103.0 MMOL/L (98-107); CREATININE FOR GFR 0.98 MG/DL (0.70-1.30); GLOMERULAR FILTRATION RATE 81.4 (>42); POTASSIUM SERUM 4.3 MMOL/L (3.5-5.1); SODIUM LEVEL 141.0 MMOL/L (136-145)
[2025-02-07 18:35] LABS: MONO # 6.9 10^3/uL (0.0-0.8)
== END ==
LOC: M LABDRAWC 17:07
PROVIDERS: ATTEND Internal Medicine Hematology & Oncology
DX: C91.10 Chronic lymphocytic leukemia of B-cell type not having achieved remission (principal)